=== PATIENT | female | born 1995 ===

== ENCOUNTER → 2017-07-27 14:41 | Emergency (ER) | payer OTHER ==
[2017-07-27 18:04] VITALS: BP 95/49
--- NOTE | 2017-07-27 18:07 | ED ---
Praful Dela Cruz Elizabeth, scribed for Reddy Mirza MD on 07/27/17 at 1711 . Substance Abuse/Use - HPI Summary HPI Summary: This patient is a 21 year old F presenting to [facility] via EMS with a chief complaint of EtOH intoxication. Patient reports that she drank rum earlier in the day as part of the celebration at . Patient denies taking any other drugs or any other medical problems. - History Of Current Complaint Chief Complaint: EDSubstanceAbuse Stated Complaint: INTOXICATION Time Seen by Provider: 07/27/17 14:58 Hx Obtained From: Patient Onset/Duration of Drug/ETOH Abuse: Hours Ingestion History: Type/Name Of Drug - EtOH Overdose Characteristics: Oral Timing Of Abuse: Binge Use Severity Initially: Moderate Character: Lethargic Associated Signs And Symptoms: Nausea, Vomiting - Allergies/Home Medications Home Medications: Home Medications NK [No Home Medications Reported] 07/27/17 [History Confirmed 07/27/17] PMH/Surg Hx/FS Hx/Imm Hx Opthamlomology History: Denies: Hx Legally Blind EENT History: Denies: Hx Deafness Infectious Disease History: No Infectious Disease History: Denies: Traveled Outside the [place] in Last 30 Days - Family History Known Family History: Positive: Unknown - hx limited due to AMS - Social History Alcohol Use: Occasionally Substance Use Type: Reports: None Smoking Status (MU): Never Smoked Tobacco Review of Systems Negative: Epistaxis Negative: Cough Positive: Vomiting, Nausea All Other Systems Reviewed And Are Negative: Yes Physical Exam - Summary Physical Exam Summary: Appearance: The patient is well-nourished in no acute distress and in no acute pain. Skin: The skin is warm and dry and skin color reflects adequate perfusion. HEENT: The head is normocephalic and atraumatic. The pupils are equal and reactive. The conjunctivae are clear and without drainage. Nares are patent and without drainage. Mouth reveals moist mucous membranes and the throat is without erythema and exudate. The external ears are intact. The ear canals are patent and without drainage. The tympanic membranes are intact. Neck: the neck is supple with full range of motion and non-tender. There are no carotid bruits. There is no neck vein distension. Respiratory: Chest is non-tender. Lungs are clear to auscultation and breath sounds are symmetrical and equal. Cardiovascular: Heart is regular rate and rhythm. There is no murmur or rub auscultated. There is no peripheral edema and pulses are symmetrical and equal. Abdomen: The abdomen is soft and non-tender. There are normal bowel sounds heard in all four quadrants and there is no organomegaly palpated. Musculoskeletal: There is no back tenderness noted. Extremities are non-tender with full range of motion. There is good capillary refill. There is no peripheral edema or calf tenderness elicited. Neurological: Patient is alert and oriented to person, place and time. The patient has symmetrical motor strength in all four extremities. Cranial nerves are grossly intact. Deep tendon reflexes are symmetrical and equal in all four extremities. Psychiatric: The patient has an appropriate affect and does not exhibit any anxiety or depression. Triage Information Reviewed: Yes Vital Signs On Initial Exam: Initial Vitals Temp Pulse Resp BP Pulse Ox 99.1 F 76 10 70/38 96 07/27/17 14:49 07/27/17 14:49 07/27/17 14:49 07/27/17 14:49 07/27/17 14:49 Vital Signs Reviewed: Yes Diagnostics - Vital Signs Vital Signs Temp Pulse Resp BP Pulse Ox 07/27/17 17:01 73 14 98/54 97 07/27/17 16:39 74 20 90/53 96 07/27/17 15:45 69 12 95/55 96 07/27/17 15:22 95/55 07/27/17 14:49 99.1 F 76 10 70/38 96 - Laboratory Lab Statement: Any lab studies that have been ordered have been reviewed, and results considered in the medical decision making process. Re-Evaluation - Re-Evaluation 1st re-eval Re-Evaluation Time: 05:45 Change: Improved - discussed discharge with patient Course/Dx - Course Course Of Treatment: Ms. Loredo presented from the [place] event at after having drunk too much rum. She came in by EMS and was vomiting earlier. She denied trauma, medical problems or other substances. She slept here awhile and woke up, ambulated about and was clinically sober. She went home with sober friends. - Diagnoses Provider Diagnoses: Alcohol intoxication Discharge - Sign-Out/Discharge Documenting (check all that apply): Discharge/Admit/Transfer - Discharge Plan Condition: Stable Disposition: HOME Patient Education Materials: Alcohol Intoxication (ED) Referrals: [facility] [place] [facility] [Outside] - 2 Days () Additional Instructions: follow up with primary care physician in 2-3 days. Return to the emergency department with any new or worsening symptoms. - Billing Disposition and Condition Condition: STABLE Disposition: HOME The documentation as recorded by the Praful brush Elizabeth accurately reflects the service I personally performed and the decisions made by me, Reddy Mirza MD.
== END | disposition home or self-care (01) ==
LOC: ED 14:41
DX: F10.129 Alcohol abuse with intoxication, unspecified (principal)
CPT/HCPCS: 99282